=== PATIENT | male | born 1975 | race Caucasian/White ===

== ENCOUNTER 2020-11-13 20:06 | Emergency (ER) | payer BC, OTHER ==
[2020-11-13] MEDS ORDERED: Sodium Chloride 0.9% 10 ML Syringe FLUSH PRN (20:30)
--- NOTE | 2020-11-13 20:42 | EDM.PDOC ---
ED HPI GENERAL MEDICAL PROBLEM - General Chief Complaint: Respiratory Problem Stated Complaint: SOB/LOW OXYGEN/TESTED FOR COVID NO TEST RESULTS Time Seen by Provider: 11/13/20 20:22 Source of Information: Reports: Patient, RN Notes Reviewed History Limitations: Reports: No Limitations - History of Present Illness INITIAL COMMENTS - FREE TEXT/NARRATIVE: Patient is a 44 year old female who presents to the ED for his COVID-19 like illness and hypoxia. Patient works for [employer], and does frequently go into people's homes. He has not been in a home that he knew for sure had anyone sick in it. Patient states that his is home sick as well. He has not had COVID-19 as far as he is aware, and he did not get vaccinated. He did go to the drive-through state testing this morning, and received 1 negative result. He has been watching his oxygen levels at home, they have been in the low 80s, when he presents to the ER they were 85% on room air, we c urrently have him on 4 L nasal cannula and he is satting around 93 to 94%. He is not visibly dyspneic at this time. He states he has had low-grade fevers, chills, body aches, cough, but no nausea/vomiting/diarrhea. Patient denies any past medical history, and states he takes no regular medications. - Related Data Allergies Allergy/AdvReac Type Severity Reaction Status Date / Time No Known Allergies Allergy Verified 11/13/20 20:27 Home Meds: Home Meds . [No Known Home Meds] 11/13/20 [History] Past Medical History - Past Health History Medical/Surgical History: Denies Medical/Surgical History Social & Family History - Tobacco Use Tobacco Use Status *Q: Never Tobacco User Second Hand Smoke Exposure: No - Recreational Drug Use Recreational Drug Use: No ED ROS GENERAL - Review of Systems Review Of Systems: Comprehensive ROS is negative, except as noted in HPI. ED EXAM, GENERAL - Physical Exam Exam: See Below Exam Limited By: No Limitations General Appearance: Alert, WD/WN, No Apparent Distress Respiratory/Chest: No Respiratory Distress, Lungs Clear, No Accessory Muscle Use, Chest Non-Tender, Decreased Breath Sounds (diffuse bilaterally) Cardiovascular: Normal Peripheral Pulses, Regular Rate, Rhythm, No Edema Peripheral Pulses: 2+: Radial (L), Radial (R) Extremities: Normal Inspection, Normal Capillary Refill Neurological: Alert, Oriented, Normal Cognition, No Motor/Sensory Deficits Psychiatric: Normal Affect, Normal Mood Skin Exam: Warm, Dry, Intact, Normal Color, No Rash Course - Vital Signs Last Recorded V/S: Last Vital Signs Temp 99.5 F 11/13/20 20:24 Pulse 75 11/13/20 22:05 Resp 18 11/13/20 22:05 BP 121/75 11/13/20 22:05 Pulse Ox 95 11/13/20 22:05 - Orders/Labs/Meds Labs: Laboratory Tests 11/13/20 11/13/20 11/13/20 Range/Units 20:30 20:40 20:40 WBC 4.73 (4.23-9.07) K/mm3 RBC 5.33 (4.63-6.08) M/mm3 Hgb 15.5 (13.7-17.5) gm/dl Hct 46.6 (40.1-51.0) % MCV 87.4 (79.0-92.2) fl MCH 29.1 (25.7-32.2) pg MCHC 33.3 (32.2-35.5) g/dl RDW Std Deviation 42.4 (35.1-43.9) fL Plt Count 184 (163-337) K/mm3 MPV 10.0 (9.4-12.3) fl Neut % (Auto) 73.2 H (34.0-67.9) % Lymph % (Auto) 20.9 L (21.8-53.1) % Pender % (Auto) 5.3 (5.3-12.2) % Eos % (Auto) 0 L (0.8-7.0) Baso % (Auto) 0.4 (0.1-1.2) % Neut # (Auto) 3.46 (1.78-5.38) K/mm3 Lymph # (Auto) 0.99 L (1.32-3.57) K/mm3 Pender # (Auto) 0.25 L (0.30-0.82) K/mm3 Eos # (Auto) 0.00 L (0.04-0.54) K/mm3 Baso # (Auto) 0.02 (0.01-0.08) K/mm3 Sodium 137 (136-145) mEq/L Potassium 3.7 (3.5-5.1) mEq/L Chloride 98 (98-107) mEq/L Carbon Dioxide 26 (21-32) mEq/L Anion Gap 16.7 H (5-15) BUN 19 H (7-18) mg/dL Creatinine 1.4 H (0.7-1.3) mg/dL Est Cr Clr Drug Dosing 67.33 mL/min Estimated GFR (MDRD) 55 (>60) mL/min BUN/Creatinine Ratio 13.6 L (14-18) Glucose 131 H (70-99) mg/dL Calcium 7.9 L (8.5-10.1) mg/dL Total Bilirubin 0.4 (0.2-1.0) mg/dL AST 44 H (15-37) U/L ALT 53 (16-63) U/L Alkaline Phosphatase 37 L (46-116) U/L C-Reactive Protein 3.1 H* (<1.0) mg/dL Total Protein 7.4 (6.4-8.2) g/dl Albumin 3.4 (3.4-5.0) g/dl Globulin 4.0 gm/dL Albumin/Globulin Ratio 0.9 L (1-2) SARS-CoV-2 RNA (ALEXSANDRA) Positive H (NEGATIVE) Meds: Medications Discontinued Medications Generic Name Dose Route Start Last Admin Trade Name Freq PRN Reason Stop Dose Admin Dexamethasone 6 mg 11/13/20 21:39 11/13/20 21:57 Dexamethasone 10 Mg/Ml Sdv IVPUSH 11/13/20 21:40 6 mg ONETIME ONE Administration Remdesivir 200 mg/ Sodium 250 mls @ 250 mls/hr 11/13/20 21:39 11/13/20 21:57 Chloride IV 11/13/20 21:40 250 mls/hr ONETIME ONE Administration Sodium Chloride 10 ml 11/13/20 20:30 11/13/20 21:58 Sodium Chloride 0.9% 10 Ml Syringe FLUSH 10 ml ASDIRECTED PRN Administration Keep Vein Open - Re-Assessments/Exams Free Text/Narrative Re-Assessment/Exam: 11/13/20 20:42 Patient presents to the ER for the evaluation of his [id number] illness, and low oxygen saturations at home. He has been retested for COVID-19 at the time of triage. He has been placed on 4 L nasal cannula, and is resting comfortably. We will go ahead get a chest x-ray, and other basic labs for further evaluation. 11/13/20 21:15 Patient CBC has resulted, his white count is within normal limits. Patient's influenza screen is negative for today's purposes. Chest x-ray is suspicious for left lower lobe infiltrates, and right lower lobe infiltrates versus atelectasis. Reviewed by myself and Dr. Solorzano. Official radiology read is still pending. No obvious sign of any sort of patchy diffuse infiltrates like a pneumonia due to COVID-19. Other labs are still pending at this time. 11/13/20 21:33 Patient did return positive for COVID-19. Metabolic panel was essentially unr emarkable, CRP was elevated at 3.1. Patient's case was discussed with Dr. Jhaveri at [facility] in [place] for hospitalization and she graciously accepts the patient at this time. Departure - Departure Time of Disposition: 21:38 Disposition: DC/Tfer to Acute Hospital 02 Condition: Good Clinical Impression: Hypoxia, Pneumonia due to COVID-19 virus - Discharge Information Referrals: PCP,None [Primary Care Provider] - Forms: ED Department Discharge Sepsis Event Note (ED) - Evaluation Sepsis Screening Result: No Definite Risk
[2020-11-13] MEDS ORDERED: Dexamethasone 10 MG/ML SDV IVPUSH ONE (21:39)
[2020-11-13] MEDS ORDERED: REMDESIVIR 200 MG in Sodium Chloride 0.9% 250 ML IV ONE (21:39)
--- NOTE | 2020-11-14 06:55 | CR ---
Chest: Portable view of the chest was obtained. Comparison: No prior chest imaging is available. Heart size and mediastinum are within normal limits for portable technique. Patchy areas of increased density are seen within the left lung base. Lesser density is noted within the right lung base. Bony structures are unremarkable. Impression: 1. Patchy increased density within both lung bases. Findings are suspicious for COVID pneumonia. Please correlate. Diagnostic code #3
== END 2020-11-13 22:25 ==
LOC: JD.ED 20:06
DX: U07.1 COVID-19 (principal); J12.82 Pneumonia due to coronavirus disease 2019
CPT/HCPCS: 36415; 71045; 80053; 85025; 86140; 87635; 87804; 96374; 99285; J1100; J7050; U0002

== ENCOUNTER 2021-06-09 12:14 | Emergency (ER) | payer OTHER, BC ==
[2021-06-09] MEDS ORDERED: Prochlorperazine 10 MG in Sodium Chloride 0.9% 50 ML IV ONE (13:31)
[2021-06-09] MEDS ORDERED: Sodium Chloride 0.9% 1,000 ML IV ONE ×2 (13:31→14:59)
[2021-06-09] MEDS ORDERED: Prochlorperazine 10 MG/2 ML SDV IV ONE (13:50)
[2021-06-09 15:38] LABS: CORONAVIRUS COVID-19 NAA NEGATIVE (NEGATIVE)
== END 2021-06-09 17:00 | disposition home or self-care (01) ==
LOC: JD.ED 12:14
DX: K52.9 Noninfective gastroenteritis and colitis, unspecified (principal); B34.9 Viral infection, unspecified; E78.00 Pure hypercholesterolemia, unspecified; Z79.899 Other long term (current) drug therapy; Z86.16 Personal history of COVID-19; Z20.822 Contact with and (suspected) exposure to COVID-19
CPT/HCPCS: 0240U; 36415; 80053; 83735; 85025; 93005; 96374; 99284; J0780; J7030; 93010; 99283